=== PATIENT | female | born 1975 ===

== ENCOUNTER → 2018-10-01 | Outpatient (CLI) | payer OTHER | LOC: LAB SHORT 14:34 → LAB 14:34 | PROVIDERS: Nurse Practitioner Family | DX: Z01.419 Encounter for gynecological examination (general) (routine) without abnormal findings (principal) | CPT/HCPCS: G0145 ==

== ENCOUNTER 2019-01-11 07:48 | Day surgery (SDC) | payer OTHER ==
[~2019-01-11] VITALS: Ht 170.2 cm; Wt 150.0 kg
[~2019-01-11 07:48] MED LIST: AMIT25 PO; IBUP800 PO; TRIPHASIL PO; ZYRTEC10 M1 PO
== END 2019-01-11 10:01 | disposition home or self-care (01) ==
LOC: ORSCSDS 07:48
PROVIDERS: Internal Medicine Gastroenterology
PROC: 0DBL8ZX Excision of Transverse Colon, Via Natural or Artificial Opening Endoscopic, Diagnostic (ICD-10-PCS; principal; 2019-01-11 09:15)
DX: Z12.11 Encounter for screening for malignant neoplasm of colon (principal); D12.2 Benign neoplasm of ascending colon; Z86.010 Personal history of colon polyps; Z80.0 Family history of malignant neoplasm of digestive organs; E78.00 Pure hypercholesterolemia, unspecified; Z79.3 Long term (current) use of hormonal contraceptives; Z79.899 Other long term (current) drug therapy
CPT/HCPCS: 88305; J2704; J7120

== ENCOUNTER → 2019-07-13 | Outpatient (CLI) | payer OTHER | END | disposition home or self-care (01) | LOC: LAB 19:18 → LAB SHORT 19:18 | DX: R35.0 Frequency of micturition (principal) | CPT/HCPCS: 87086 ==

== ENCOUNTER → 2021-07-25 | Outpatient (CLI) | payer OTHER ==
[2021-07-28 11:09] LABS: HPV 16 Negative (Negative); HPV 18 Negative (Negative); HPV OTHER HR TYPES Negative (Negative)
== END | disposition home or self-care (01) ==
LOC: LAB SHORT 15:55
PROVIDERS: Nurse Practitioner Family
DX: Z01.419 Encounter for gynecological examination (general) (routine) without abnormal findings (principal)
CPT/HCPCS: 87624; G0145

== ENCOUNTER → 2022-05-09 | Outpatient (CLI) | payer OTHER | END | disposition home or self-care (01) | LOC: LAB 13:37 → LAB SHORT 13:37 | DX: N93.9 Abnormal uterine and vaginal bleeding, unspecified (principal) | CPT/HCPCS: 88305 ==

== ENCOUNTER 2022-06-10 12:53 | Day surgery (SDC) | payer OTHER ==
[~2022-06-10] VITALS: Ht 170.2 cm; Wt 71.3 kg
--- NOTE | 2022-06-10 14:49 | NUR ---
06/10/22 1449 Eliud Maier FLUID DEFICIT OF 1200 CC NORMAL SALINE COUNTED, MDS NOTIFIED.
--- NOTE | 2022-06-10 16:08 | NUR ---
06/10/22 1608 Missael Palacios PT REPORTS 7/10 ABD PAIN BUT DESCRIBES HER PAIN TOLERABLE. SHE APPEARS CALM AND RELAXED AND STATES THAT SHE WOULD RATHER RECOVER AT HOME THAN WAIT IN SDU LONGER TO RECIEVE IV PAIN MEDICATION.
== END 2022-06-10 15:50 | disposition home or self-care (01) ==
LOC: ORSCSDS 12:53
PROVIDERS: Obstetrics & Gynecology
PROC: 0U5B8ZZ Destruction of Endometrium, Via Natural or Artificial Opening Endoscopic (ICD-10-PCS; principal; 2022-06-10 14:00)
PROC: 0UDB8ZX Extraction of Endometrium, Via Natural or Artificial Opening Endoscopic, Diagnostic (ICD-10-PCS; principal; 2022-06-10 14:00)
PROC: 0UB98ZX Excision of Uterus, Via Natural or Artificial Opening Endoscopic, Diagnostic (ICD-10-PCS; principal; 2022-06-10 14:00)
DX: N92.0 Excessive and frequent menstruation with regular cycle (principal); D25.0 Submucous leiomyoma of uterus; N93.8 Other specified abnormal uterine and vaginal bleeding; E78.5 Hyperlipidemia, unspecified; Z79.899 Other long term (current) drug therapy; M79.7 Fibromyalgia; E78.00 Pure hypercholesterolemia, unspecified
CPT/HCPCS: 88305; A9270; J1100; J1885; J2250; J2405; J2704; J3010; J7120

== ENCOUNTER → 2023-06-22 | Outpatient (CLI) | payer OTHER ==
[2023-06-22 14:03] LABS: Source, Urine Clean Catch
[2023-06-22 14:17] LABS: Bacteria Not Seen /hpf; Red Blood Cells, Urine Not Seen /hpf (0-2); Squamous Epithelial Cells Few /hpf (Few); White Blood Cells, Urine Not Seen /hpf (0-5)
== END ==
LOC: LAB SHORT 14:00 → LAB 14:00
PROVIDERS: Physician Assistant Medical
DX: R31.29 Other microscopic hematuria (principal)
CPT/HCPCS: 81015